=== PATIENT | male | born 1985 | race Caucasian/White ===

== ENCOUNTER 2018-10-15 22:56 | Emergency (ER) | payer OTHER ==
[2018-10-15] MEDS ORDERED: Sodium Chloride 0.9% 1,000 ML IV STA (23:20)
--- NOTE | 2018-10-15 23:35 | ED PDOC ---
HPI: Abdomen Time Seen by Provider: 10/15/18 23:10 Chief Complaint (Nursing): Abdominal Pain Chief Complaint (Provider): Abdominal Pain History Per: Patient History/Exam Limitations: no limitations Onset/Duration Of Symptoms: Days (x3) Location Of Pain/Discomfort: Other (Left sided) Associated Symptoms: Diarrhea Additional Complaint(s): 33 years old Jew [place] male presents to ER for evaluation of left sided abdominal pain with occasional diarrhea onset 3 days ago. Patient reports associated low grade fever of 100.4 degrees maximum and loose bowel movement. He states he took Motrin and reports fever resolved in one day. Patient reports 1 episode of diarrhea with mucous but non bloody. He states he went to urgent care where he was advised to have a CT scan as an outpatient but he decide to come to the hospital. PMD: Adalid Ortega Past Medical History Reviewed: Historical Data, Nursing Documentation, Vital Signs Vital Signs: Last Vital Signs Temp 98.3 F 10/15/18 23:00 Pulse 100 H 10/15/18 23:00 Resp 18 10/15/18 23:00 BP 127/84 10/15/18 23:00 Pulse Ox 98 10/15/18 23:00 - Medical History PMH: No Chronic Diseases - Surgical History Surgical History: No Surg Hx - Family History Family History: States: Unknown Family Hx - Social History Current smoker - smoking cessation education provided: No Alcohol: None Drugs: Denies - Home Medications Home Medications: Ambulatory Orders Medication Instructions Recorded Dicyclomine [Bentyl] 20 mg PO Q12 PRN #20 tab 10/16/18 - Allergies Allergies/Adverse Reactions: Allergies Allergy/AdvReac Type Severity Reaction Status Date / Time Sulfa (Sulfonamide Allergy RASH Verified 10/15/18 23:02 Antibiotics) Review of Systems ROS Statement: Except As Marked, All Systems Reviewed And Found Negative Constitutional: Positive for: Fever (low grade-resolved now) Gastrointestinal: Positive for: Abdominal Pain (left sided), Diarrhea Physical Exam - Reviewed Nursing Documentation Reviewed: Yes Vital Signs Reviewed: Yes - Physical Exam Appears: Positive for: Well, No Acute Distress Head Exam: Positive for: ATRAUMATIC, NORMOCEPHALIC Skin: Positive for: Normal Color, Warm, Dry ENT: Positive for: Other (Dry mucous membrane) Neck: Positive for: Normal, Painless ROM, Supple Cardiovascular/Chest: Positive for: Regular Rate, Rhythm, Tachycardia Respiratory: Positive for: Normal Breath Sounds. Negative for: Respiratory Distress Gastrointestinal/Abdominal: Positive for: Normal Exam, Soft. Negative for: Tenderness Back: Positive for: Normal Inspection. Negative for: L CVA Tenderness, R CVA Tenderness Extremity: Positive for: Normal ROM. Negative for: Pedal Edema, Swelling Neurologic/Psych: Positive for: Alert, Oriented (x3) - Laboratory Results Result Diagrams: 10/16/18 00:06 10/16/18 00:06 - ECG O2 Sat by Pulse Oximetry: 98 (RA) Pulse Ox Interpretation: Normal Medical Decision Making Medical Decision Making: Time: 2319 Initial Impression: 33 y/o male with abdominal pain and diarrhoeal illness. Initial Plan: --CMP --Lactic Acid --Lipase --Urine --CBC --Blood culture 0120 Labs reviewed and show no clinically significant abnormality. Patient reports symptoms are very mild and stable for discharge. Diagnosis gastroenteritis. Scribe Attestation: Documented by Azalea Villalobos, acting as a scribe for Darvin Gardner MD. Provider Scribe Attestation: All medical record entries made by the Scribe were at my direction and personally dictated by me. I have reviewed the chart and agree that the record accurately reflects my personal performance of the history, physical exam, medical decision making, and the department course for this patient. I have also personally directed, reviewed, and agree with the discharge instructions and disposition. Disposition - Clinical Impression Clinical Impression: Gastroenteritis - Patient ED Disposition Is Patient to be Admitted: No - Disposition Disposition: Routine/Home Disposition Time: 01:20 Condition: STABLE Prescriptions: Dicyclomine [Bentyl] 20 mg PO Q12 PRN #20 tab PRN Reason: abdominal pain/diarrhea Instructions: Gastroenteritis (ED) Forms: [employer] (Kazakh)
[2018-10-16 00:13] LABS: BASO % 0.8 % (0.0-2.0); EOS # 0.3 K/uL (0.0-0.7); EOS % 4.5 % (0.0-4.0); HEMOGLOBIN 15.6 g/dL (12.0-18.0); LYMPH # 2.2 K/uL (1.0-4.3); LYMPH % 40.1 % (20.0-40.0); MEAN CELL VOLUME 87.1 fl (80.0-94.0); MEAN CORPUSCULAR HEMOGLOBIN 28.8 pg (27.0-31.0); MEAN CORPUSCULAR HGB CONC 33.1 g/dL (33.0-37.0); MEAN PLATELET VOLUME 8.5 fl (7.2-11.7); MONO # 0.6 K/uL (0.0-0.8); MONO % 10.3 % (0.0-10.0); NEUT # 2.5 K/uL (1.8-7.0); NEUT % 44.3 % (50.0-75.0); RBC 5.43 Mil/uL (4.40-5.90); WHITE BLOOD COUNT 5.6 K/uL (4.8-10.8)
[2018-10-16 00:18] LABS: ALB/GLOB RATIO 1.1 (1.0-2.1); ALBUMIN 4.6 g/dL (3.5-5.0); ALT/SGPT 47 U/L (21-72); AST/SGOT 43 U/L (17-59); BLOOD UREA NITROGEN 20 mg/dl (9-20); CALCIUM 8.8 mg/dL (8.4-10.2); GFR NON-AFRICAN AMERICAN > 60; LIPASE 55 U/L (23-300)
[2018-10-16 02:18] VITALS: BP 127/72; PULSE 72; RESP 16; TEMP 98.8; O2SAT 100
== END 2018-10-16 02:18 | disposition home or self-care (01) ==
LOC: H.ER 22:56
DX: K52.9 Noninfective gastroenteritis and colitis, unspecified (principal); Z88.2 Allergy status to sulfonamides
CPT/HCPCS: 80053; 83605; 83690; 85025; 87040; 99283; J7030